=== PATIENT | female | born 1950 | race Caucasian/White ===

== ENCOUNTER 2020-11-01 07:26 | Outpatient (CLI) | payer MEDICARE, BC | END 2020-11-01 07:27 | disposition home or self-care (01) | LOC: CSHCP 07:26 | PROVIDERS: ATTEND Internal Medicine Medical Oncology | DX: Z01.810 Encounter for preprocedural cardiovascular examination (principal); R06.02 Shortness of breath; I34.0 Nonrheumatic mitral (valve) insufficiency; R94.2 Abnormal results of pulmonary function studies | CPT/HCPCS: 93306; 94010; 94729; 94760 ==